=== PATIENT | female | born 1990 | race Two or more races ===

== ENCOUNTER 2018-01-09 21:23 | Inpatient (IN) | payer SELFPAY ==
[2018-01-09 22:09] LABS: BILIRUBIN,URINE NEGATIVE (NEG); CLARITY,URINE CLOUDY; COLOR,URINE YELLOW; GLUCOSE,URINE NEGATIVE (NEG); NITRITE,URINE NEGATIVE (NEG); PH,URINE 7.5; PROTEIN,URINE 100 mg/dL (NEG-TRACE); UROBILINOGEN,URINE 0.2 mg/dL (0.2 mg/dL)
[2018-01-09 22:20] LABS: BACTERIA,URINE FEW /HPF (0-FEW)
[2018-01-09 22:21] LABS: SQUAMOUS EPITHELIAL CELL,UR FEW /LPF
[2018-01-09 22:24] LABS: BARBITURATES NEG (NEG); BENZODIAZEPINES NEG (NEG); CANNABINOIDS NEG (NEG); COCAINE NEG (NEG); METHADONE NEG (NEG); OPIATES NEG (NEG); PHENCYCLIDINE NEG (NEG)
[2018-01-09 22:28] LABS: AMPHETAMINE/METHAMPHETAMINE NEG (NEG); ETHANOL, URINE NEG (NEG)
[2018-01-09 23:39] LABS: ADD MAN DIFF? NO
[2018-01-09] MEDS ORDERED: 0.9 % SODIUM CHLORIDE 10 ML DISP.SYRIN. IV (23:45)
[2018-01-09] MEDS ORDERED: fentaNYL PF VIAL 100 MCG/2 ML VIAL IV ×2 (23:45)
[2018-01-09] MEDS ORDERED: OXYTOCIN 30 UNIT/500 ML PREMIX 500 ML IV (23:45)
[2018-01-09] MEDS ORDERED: IV RINGERS,LACTATED 1000ML 1,000 ML IV (23:45)
[2018-01-09] MEDS ORDERED: LIDOCAINE 1% PF 30 ML VIAL. INJ (23:45)
[2018-01-09] MEDS ORDERED: BUTORPHANOL 2 MG/ML VIAL. IV ×2 (23:45)
[2018-01-09] MEDS ORDERED: TERBUTALINE 1 MG/ML VIAL. SQ (23:45)
[2018-01-09] MEDS ORDERED: ONDANSETRON PF 4 MG/2 ML VIAL. IV (23:45)
[2018-01-09 23:53] LABS: BASO % 0 % (0-3); EOS # 0.1 x10^3/uL (0.0-0.7); EOS % 1 % (0-3); HEMATOCRIT 36.3 % (36.0-47.0); HEMOGLOBIN 12.7 g/dL (12.0-15.5); LYMPH # 2.7 x10^3/uL (1.0-4.8); LYMPH % 22 % (24-48); MEAN CORPUSCULAR HEMOGLOBIN 29 pg (25-35); MEAN CORPUSCULAR HGB CONC 35 g/dL (31-37); MEAN CORPUSCULAR VOLUME 84 fL (79-100); MONO # 0.8 x10^3/uL (0.0-1.1); MONO % 7 % (0-9); NEUT # 8.5 x10^3uL (1.8-7.7); NEUT % 70 % (31-73); PLATELET COUNT 174 x10^3/uL (140-400); RED BLOOD COUNT 4.35 x10^6/uL (3.50-5.40); RED CELL DISTRIBUTION WIDTH 14.5 % (11.5-14.5); WHITE BLOOD COUNT 12.2 x10^3/uL (4.0-11.0)
[2018-01-10] MEDS: IV RINGERS,LACTATED 1000ML 1,000 ML IV ×2 (00:29→06:02)
[2018-01-10] MEDS: OXYTOCIN 30 UNIT/500 ML PREMIX 500 ML IV (06:03)
[2018-01-10] MEDS: BENZOCAINE 20% TOPICAL AEROSOL SPRAY 57GM CAN. TP (13:30)
[2018-01-10] MEDS: IBUPROFEN 800 MG TABLET. PO ×2 (13:30→19:22)
[2018-01-10] MEDS: ACETAMINOPHEN 325 MG TABLET. PO (20:35)
[2018-01-11] MEDS: IBUPROFEN 800 MG TABLET. PO ×3 (01:17→19:15)
[2018-01-11 04:20] LABS: RPR Non Reactive (Non Reactive)
[2018-01-11] MEDS: ACETAMINOPHEN 325 MG TABLET. PO (05:24)
[2018-01-11 10:10] LABS: HEMATOCRIT 34.3 % (36.0-47.0); HEMOGLOBIN 11.8 g/dL (12.0-15.5); MEAN CORPUSCULAR HEMOGLOBIN 29 pg (25-35); MEAN CORPUSCULAR HGB CONC 34 g/dL (31-37); MEAN CORPUSCULAR VOLUME 86 fL (79-100); PLATELET COUNT 163 x10^3/uL (140-400); RED BLOOD COUNT 4.02 x10^6/uL (3.50-5.40); RED CELL DISTRIBUTION WIDTH 14.7 % (11.5-14.5); WHITE BLOOD COUNT 13.9 x10^3/uL (4.0-11.0)
[2018-01-12] MEDS: IBUPROFEN 800 MG TABLET. PO (06:40)
[2018-01-12] MEDS: ACETAMINOPHEN 325 MG TABLET. PO (10:03)
== END 2018-01-12 16:30 | disposition home or self-care (01) | DRG 775 ==
LOC: 3 SO LND 21:23 → 3 NORTH 01-10 13:50
PROC: 10E0XZZ Delivery of Products of Conception, External Approach (ICD-10-PCS; principal; 2018-01-10)
DX: O48.0 Post-term pregnancy (principal); O24.420 Gestational diabetes mellitus in childbirth, diet controlled; Z37.0 Single live birth; Z3A.41 41 weeks gestation of pregnancy
CPT/HCPCS: 36415; 80307; 81001; 85025; 85027; 86593; 86850; 86900; 86901; 87086; G0378; J2590; J7120

== ENCOUNTER 2021-10-13 19:23 | Emergency (ER) | payer SELFPAY ==
[~2021-10-13] VITALS: Ht 160 cm; Wt 77.3 kg
[~2021-10-13 19:23] MED LIST: PNV1TABL25 PO
[2021-10-13 20:25] LABS: BILIRUBIN,URINE NEGATIVE (NEG); CLARITY,URINE CLEAR; COLOR,URINE YELLOW; NITRITE,URINE NEGATIVE (NEG); PROTEIN,URINE NEGATIVE (NEG-TRACE); UROBILINOGEN,URINE 0.2 mg/dL (0.2 mg/dL)
[2021-10-13 20:27] LABS: BACTERIA,URINE 0 /HPF (0-FEW); WBC,URINE 20-40 /HPF (0-4)
[2021-10-13] MEDS ORDERED: IV NORMAL SALINE 1000ML BAG 1,000 ML IV ONE (21:15)
[2021-10-13] MEDS ORDERED: MORPHINE SULFATE 2 MG/ML INJ. IVP ONE (21:15)
[2021-10-13] MEDS ORDERED: ONDANSETRON PF 4 MG/2 ML VIAL. IVP ONE (21:15)
[2021-10-13 21:25] LABS: BASO % 1 % (0-3); EOS # 0.2 x10^3/uL (0.0-0.7); EOS % 2 % (0-3); HEMATOCRIT 37.1 % (36.0-47.0); HEMOGLOBIN 12.4 g/dL (12.0-15.5); LYMPH # 3.3 x10^3/uL (1.0-4.8); LYMPH % 31 % (24-48); MEAN CORPUSCULAR HEMOGLOBIN 27 pg (25-35); MEAN CORPUSCULAR HGB CONC 33 g/dL (31-37); MEAN CORPUSCULAR VOLUME 82 fL (79-100); MONO # 0.7 x10^3/uL (0.0-1.1); MONO % 7 % (0-9); NEUT # 6.3 x10^3/uL (1.8-7.7); NEUT % 60 % (31-73); PLATELET COUNT 264 x10^3/uL (140-400); RED BLOOD COUNT 4.52 x10^6/uL (3.50-5.40); RED CELL DISTRIBUTION WIDTH 13.2 % (11.5-14.5); WHITE BLOOD COUNT 10.6 x10^3/uL (4.0-11.0)
[2021-10-13 21:43] LABS: CALCIUM 8.8 mg/dL (8.5-10.1); CREATININE 0.6 mg/dL (0.6-1.0); GFR 115.9; POTASSIUM 4.1 mmol/L (3.5-5.1)
[2021-10-13 21:49] LABS: ALBUMIN 3.6 g/dL (3.4-5.0); ALBUMIN/GLOBULIN RATIO 0.9 (1.0-1.7); TOTAL BILIRUBIN 0.2 mg/dL (0.2-1.0); TOTAL PROTEIN 7.6 g/dL (6.4-8.2)
--- NOTE | 2021-10-13 22:24 | RAD ---
Exam: CT abdomen/pelvis without intravenous contrast Indication: Left lower quadrant pain Comparison: None Technique: Helical CT imaging performed of the abdomen and pelvis without the use of intravenous cont rast. Sagittal and coronal reformats were obtained. One or more of the following individualized dose reduction techniques were utilized for this examinat ion: 1. Automated exposure control 2. Adjustment of the mA and/or kV according to patient size 3. Use of iterative reconstruction technique. Findings: Inherently limited evaluation without intravenous contrast. Lower chest: Normal. Liver: Normal. Gallbladder/Biliary Tree: Normal. Pancreas: Normal. Spleen: Normal. Adrenal Glands: Normal. Kidneys/Ureters/Bladder: Normal. No nephrolithiasis or hydronephrosis. Reproductive Organs: Uterus is anteverted. Intrauterine device is in appropriate position. Ovaries ar e normal. Stomach, small bowel, and colon: Stomach is normal. No small bowel obstruction. Appendix is normal. T here a few diverticula in the sigmoid colon with wall thickening and surrounding inflammation. The re st of the colon is normal. Vasculature: Abdominal aorta is normal. Lymph Nodes: No lymphadenopathy. Peritoneum and retroperitoneum: Trace fluid in the left paracolic gutter. No free air. Bones: No acute osseous abnormality. Miscellaneous: None. IMPRESSION: Mild acute sigmoid diverticulitis. No complication. Electronically signed by: Lian Quinones MD (10/13/2021 10:22 PM) [facility]
[2021-10-13] MEDS ORDERED: CIPR250T30 PO (23:31)
[2021-10-13] MEDS ORDERED: METR-34 PO (23:31)
[2021-10-13] MEDS ORDERED: ONDA4TAB12 PO (23:31)
[2021-10-13] MEDS ORDERED: IBUP-1007 PO (23:31)
--- NOTE | 2021-10-13 23:32 | PHYS DOC ---
Past Medical History Past Medical History: No Pertinent History Past Surgical History: No Surgical History Smoking Status: Never Smoker Alcohol Use: None Drug Use: None Adult General Chief Complaint Chief Complaint: ABDOMINAL PAIN HPI HPI Patient is a 31 year old female with left lower quadrant pain that has been present for the last day or 2. Patient has been nauseated but has not had any emesis. She had some loose stool earlier today, otherwise no diarrhea or constipation. No burning with urination or blood in the urine. No increase in urinary frequency. Pain is crampy in nature and seems to occur intermittently. No associated chest pain, shortness of breath, no fever. Patient states that her last period was about a month ago, does not believe she is . Review of Systems Review of Systems Constitutional: Denies fever or chills [] Eyes: Denies change in visual acuity, or eye pain [] HENT: Denies sore throat [] Respiratory: Denies shortness of breath [] Cardiovascular: Denies chest pain [] GI: Admits to crampy left lower quadrant pain : Denies dysuria or hematuria [] Musculoskeletal: Denies back pain currently, though the pain did seem to radiate towards the left flank earlier. Integument: Denies rash or skin lesions [] Neurologic: Denies headache, focal weakness or sensory changes [] All other systems were reviewed and found to be within normal limits, except as documented in this note. Current Medications Current Medications Current Medications Medications (Trade) Dose Ordered Sig/Erika Start Time Stop Time Status Last Admin Dose Admin Morphine Sulfate (Morphine Sulfate) 2 mg 1X ONCE 10/13/21 21:15 10/13/21 21:19 DC 10/13/21 21:54 2 MG Ondansetron HCl (Zofran) 4 mg 1X ONCE 10/13/21 21:15 10/13/21 21:19 DC 10/13/21 21:53 4 MG Sodium Chloride 1,000 ml @ 999 mls/hr 1X ONCE 10/13/21 21:15 10/13/21 22:15 DC 10/13/21 21:53 999 MLS/HR Allergies Allergies Allergies Coded Allergies Type Severity Reaction Last Updated Verified No Known Drug Allergies 09/07/15 No Physical Exam Physical Exam Constitutional: Well developed, well nourished, no acute distress, non-toxic appearance. HENT: Normocephalic, atraumatic, bilateral external ears normal, mucosa moist, nose normal. Eyes: EOMI, conjunctiva normal, no discharge. Neck: Normal range of motion, supple, no stridor, no meningeal signs. Cardiovascular: Regular rate and rhythm Lungs & Thorax: Bilateral breath sounds clear to auscultation Abdomen: Soft, left lower quadrant tenderness on palpation Skin: Warm, dry, no erythema, no rash. Extremities: No tenderness, no cyanosis, no clubbing, ROM intact, no edema. Neurologic: Alert and oriented, normal motor function, normal sensory function, no focal deficits noted. Psychologic: Affect normal, judgement normal, mood normal. Current Patient Data Vital Signs Vital Signs Date Time Temp Pulse Resp B/P (MAP) Pulse Ox O2 Delivery O2 Flow Rate FiO2 10/13/21 21:54 18 100 Room Air 10/13/21 20:24 83 98/69 (79) 10/13/21 19:30 98.2 98.2 Lab Values Laboratory Tests Test 10/13/21 19:40 10/13/21 20:16 10/13/21 20:35 Urine Collection Type Unknown Urine Color Yellow Urine Clarity Clear Urine pH 6.0 (<5.0-8.0) Urine Specific Mobile <=1.005 (1.000-1.030) Urine Protein Negative mg/dL (NEG-TRACE) Urine Glucose (UA) Negative mg/dL (NEG) Urine Ketones (Stick) Negative mg/dL (NEG) Urine Blood Negative (NEG) Urine Nitrite Negative (NEG) Urine Bilirubin Negative (NEG) Urine Urobilinogen Dipstick 0.2 mg/dL (0.2 mg/dL) Urine Leukocyte Esterase Moderate (NEG) Urine RBC 3-5 /HPF (0-2) Urine WBC 20-40 /HPF (0-4) Urine Squamous Epithelial Cells Mod /LPF Urine Bacteria 0 /HPF (0-FEW) POC Urine HCG, Qualitative Hcg negative (Negative) White Blood Count 10.6 x10^3/uL (4.0-11.0) Red Blood Count 4.52 x10^6/uL (3.50-5.40) Hemoglobin 12.4 g/dL (12.0-15.5) Hematocrit 37.1 % (36.0-47.0) Mean Corpuscular Volume 82 fL (79-100) Mean Corpuscular Hemoglobin 27 pg (25-35) Mean Corpuscular Hemoglobin Concent 33 g/dL (31-37) Red Cell Distribution Width 13.2 % (11.5-14.5) Platelet Count 264 x10^3/uL (140-400) Neutrophils (%) (Auto) 60 % (31-73) Lymphocytes (%) (Auto) 31 % (24-48) Monocytes (%) (Auto) 7 % (0-9) Eosinophils (%) (Auto) 2 % (0-3) Basophils (%) (Auto) 1 % (0-3) Neutrophils # (Auto) 6.3 x10^3/uL (1.8-7.7) Lymphocytes # (Auto) 3.3 x10^3/uL (1.0-4.8) Monocytes # (Auto) 0.7 x10^3/uL (0.0-1.1) Eosinophils # (Auto) 0.2 x10^3/uL (0.0-0.7) Basophils # (Auto) 0.0 x10^3/uL (0.0-0.2) Sodium Level 142 mmol/L (136-145) Potassium Level 4.1 mmol/L (3.5-5.1) Chloride Level 103 mmol/L (98-107) Carbon Dioxide Level 26 mmol/L (21-32) Anion Gap 13 (6-14) Blood Urea Nitrogen 13 mg/dL (7-20) Creatinine 0.6 mg/dL (0.6-1.0) Estimated GFR (Cockcroft-Gault) 115.9 BUN/Creatinine Ratio 22 (6-20) H Glucose Level 103 mg/dL (70-99) H Calcium Level 8.8 mg/dL (8.5-10.1) Total Bilirubin 0.2 mg/dL (0.2-1.0) Aspartate Amino Transferase (AST) 11 U/L (15-37) L Alanine Aminotransferase (ALT) 20 U/L (14-59) Alkaline Phosphatase 59 U/L (46-116) Total Protein 7.6 g/dL (6.4-8.2) Albumin 3.6 g/dL (3.4-5.0) Albumin/Globulin Ratio 0.9 (1.0-1.7) L Lipase 64 U/L (73-393) L Laboratory Tests 10/13/21 20:35 Laboratory Tests 10/13/21 20:35 EKG EKG [] Radiology/Procedures Radiology/Procedures PATIENT: GIL STOKESUNT: [id number]#: [id number] : 1990 LOCATION: ER AGE: 31 SEX: F EXAM STATUS: REG ER ORD. PHYSICIAN: STAR KOTHARI MD REASON: LLQ pain PROCEDURE: CT ABDOMEN PELVIS WO CONTRAST Exam: CT abdomen/pelvis without intravenous contrast Indication: Left lower quadrant pain Comparison: None Technique: Helical CT imaging performed of the abdomen and pelvis without the use of intravenous contrast. Sagittal and coronal reformats were obtained. One or more of the following individualized dose reduction techniques were utilized for this examination: 1. Automated exposure control 2. Adjustment of the mA and/or kV according to patient size 3. Use of iterative reconstruction technique. Findings: Inherently limited evaluation without intravenous contrast. Lower chest: Normal. Liver: Normal. Gallbladder/Biliary Tree: Normal. Pancreas: Normal. Spleen: Normal. Adrenal Glands: Normal. Kidneys/Ureters/Bladder: Normal. No nephrolithiasis or hydronephrosis. Reproductive Organs: Uterus is anteverted. Intrauterine device is in appropriate position. Ovaries are normal. Stomach, small bowel, and colon: Stomach is normal. No small bowel obstruction. Appendix is normal. There a few diverticula in the sigmoid colon with wall thickening and surrounding inflammation. The rest of the colon is normal. Vasculature: Abdominal aorta is normal. Lymph Nodes: No lymphadenopathy. Peritoneum and retroperitoneum: Trace fluid in the left paracolic gutter. No free air. Bones: No acute osseous abnormality. Miscellaneous: None. IMPRESSION: Mild acute sigmoid diverticulitis. No complication. Electronically signed by: Lian Quinones MD (10/13/2021 10:22 PM) [facility] DICTATED and SIGNED BY: LIAN QUINONES MD DATE: 10/13/21 [id number] 0 Course & Med Decision Making Course & Med Decision Making Pertinent Labs and Imaging studies reviewed. (See chart for details) [] Is a 31-year-old female with left lower quadrant pain. CT of the abdomen pelvis demonstrates mild case of sigmoid diverticulitis. Labs are unrevealing other than a potential UTI. We will put the patient on Cipro and Flagyl, have her use Motrin on a as needed basis and we will also give her Zofran as needed. She should follow-up with her primary care physician next week, return to the emergency department if symptoms become worse, she is stable for discharge at this time. Dragon Disclaimer Dragon Disclaimer This electronic medical record was generated, in whole or in part, using a voice recognition dictation system. Departure Departure Impression: Primary Impression: Diverticulitis Disposition: HOME / SELF CARE / HOMELESS Condition: STABLE Referrals: NO PCP (PCP) Patient Instructions: Diverticulitis, Diverticulitis, [id number] Scripts Ibuprofen (IBUPROFEN) 600 Mg Tablet 600 MG PO PRN Q6HRS PRN for PAIN, #20 TAB take with food or milk Prov: STAR KOTHARI MD 10/13/21 Ondansetron (ONDANSETRON ODT) 4 Mg Tab.rapdis 4 MG PO BID PRN for NAUSEA/VOMITING, #10 TAB Prov: STAR KOTHARI MD 10/13/21 Metronidazole (METRONIDAZOLE) 500 Mg Tablet 1 TAB PO QID for 10 Days, #40 TAB 0 Refills Prov: STAR KOTHARI MD 10/13/21 Ciprofloxacin Hcl (CIPRO) 250 Mg Tablet 750 MG PO BID for 10 Days, #60 TAB Prov: STAR KOTHARI MD 10/13/21 STAR KOTHARI MD Oct 13, 2021 23:32
[2021-10-13] MEDS ORDERED: CIPROFLOXACIN HCL 250 MG TABLET. PO ONE (23:45)
[2021-10-13] MEDS ORDERED: metroNIDAZOLE 500 MG TABLET PO ONE (23:45)
[2021-10-13 23:52] VITALS: BP 114/55
== END 2021-10-14 | disposition home or self-care (01) ==
LOC: ER 19:23
DX: K57.92 Diverticulitis of intestine, part unspecified, without perforation or abscess without bleeding (principal)
CPT/HCPCS: 36415; 74176; 80053; 81001; 81025; 83690; 85025; 87086; 96361; 96374; 96375; 99285; J2270; J2405; J7030